=== PATIENT | female | born 1995 | race American Indian/Alaskan Native ===

== ENCOUNTER 2017-07-12 16:46 | Emergency (ER) | payer SELFPAY ==
[2017-07-12 17:02] VITALS: BP 130/77
[2017-07-12 20:55] LABS: Bacteria,Urine 1+ /HPF (Negative); Bilirubin,Urine NEG (Negative); Blood,Urine NEG (Negative); Ketones,Urine NEG (Negative); Leukocyte Esterase,Urine LG (Negative); Mucus,Urine FEW /HPF; Nitrite,Urine NEG (Negative); Protein,Urine <15 mg/dL mg/dL (Negative); Urobilinogen,Urine < 2.0 mg/dL (<2.0)
--- NOTE | 2017-07-13 04:52 | Emergency Department Report ---
Entered by SABA STINSON, acting as scribe for SEEMA BOX NP. ED Female HPI - General Chief complaint: Urogenital-Female Stated complaint: TEST ,POSSIBLE YEAST INFECTION Time Seen by Provider: 07/12/17 19:13 Source: patient Mode of arrival: Ambulatory Limitations: No Limitations - History of Present Illness Initial comments: This is a 27 year old female nontoxic, well nourished in appearance, no acute signs of distress, presents with c/o vaginal discharge and itching for 1 week. Patient states possible yeast infection and she feels like she is but has not yet confirmed . Patient reports vaginal discharge with odor, but denies headache, fever, chills, dizziness, hematuria, dysuria, vaginal bleeding, urgency, chest pain, shortness of breathe, or frequency. Patient states she needs confirmed to complete her Medicaid eligibility. Patient's LMP was in March. NKDA. Patient stated she is not concerned by STD but still wants to be tested. MD Complaint: vaginal discharge (with odor), other (possible yeast infection) -: week(s) (1) Severity: mild Severity scale (0 -10): 3 Quality: burning Consistency: constant Improves with: none Worsens with: none Associated Symptoms: denies other symptoms, vaginal discharge. denies: vaginal bleeding, abdominal pain, nausea/vomiting, fever/chills, headaches, loss of appetite, dysuria, hematuria, rash, seizure, shortness of breath, syncope, weakness - Related Data Sexually active: Yes Previous Rx's Medication Instructions Recorded Last Taken Type Vit/Iron Fumarate/FA 1 each PO QDAY #90 tablet 02/08/14 09/04/14 11:45 Rx [ Vitamin Tablet] 1 Ferrous Sulfate [Feosol 325 MG tab] 325 mg PO BID #60 tablet 09/05/14 Unknown Rx Fluconazole [Diflucan 200] 200 mg PO QDAY #1 tablet 09/05/14 Unknown Rx Ibuprofen [Motrin 800 MG tab] 800 mg PO Q6H PRN #30 tablet 09/05/14 Unknown Rx Clindamycin [Clindamycin CAP] 300 mg PO BID #14 cap 07/12/17 Unknown Rx Nitrofurantoin Donley/M-Cryst 100 mg PO Q12HR #14 capsule 07/12/17 Unknown Rx [Macrobid CAP] Allergies Allergy/AdvReac Type Severity Reaction Status Date / Time No Known Allergies Allergy Verified 07/14/14 17:08 ED Review of Systems Comment: All other systems reviewed and negative Constitutional: denies: chills, fever, weakness Eyes: denies: eye pain, eye discharge, vision change ENT: denies: ear pain, throat pain Respiratory: denies: cough, shortness of breath, wheezing Cardiovascular: denies: chest pain, palpitations Endocrine: no symptoms reported Gastrointestinal: denies: abdominal pain, nausea, vomiting, diarrhea Genitourinary: discharge (with odor). denies: urgency, dysuria, frequency, hematuria Musculoskeletal: denies: back pain, joint swelling, arthralgia Skin: denies: rash, lesions Neurological: denies: headache, weakness, paresthesias Psychiatric: denies: anxiety, depression Hematological/Lymphatic: denies: easy bleeding, easy bruising ED Past Medical Hx - Past Medical History Previous Medical History?: Yes Hx Hypertension: Yes (gestational PIH) Hx Heart Attack/AMI: No Hx Congestive Heart Failure: No Hx Diabetes: No Hx Deep Vein Thrombosis: No Hx Liver Disease: No Hx Renal Disease: No Hx Sickle Cell Disease: No Hx Seizures: No Hx Asthma: No Hx COPD: No Hx HIV: No - Surgical History Past Surgical History?: No - Social History Smoking Status: Never Smoker Substance Use Type: None - Medications Home Medications: Home Medications Medication Instructions Recorded Confirmed Last Taken Type Vit/Iron Fumarate/FA 1 each PO QDAY #90 tablet 02/08/14 09/04/14 11:45 Rx [ Vitamin Tablet] 1 Ferrous Sulfate [Feosol 325 MG tab] 325 mg PO BID #60 tablet 09/05/14 Unknown Rx Fluconazole [Diflucan 200] 200 mg PO QDAY #1 tablet 09/05/14 Unknown Rx Ibuprofen [Motrin 800 MG tab] 800 mg PO Q6H PRN #30 tablet 09/05/14 Unknown Rx Clindamycin [Clindamycin CAP] 300 mg PO BID #14 cap 07/12/17 Unknown Rx Nitrofurantoin Donley/M-Cryst 100 mg PO Q12HR #14 capsule 07/12/17 Unknown Rx [Macrobid CAP] ED Physical Exam - General Limitations: No Limitations General appearance: alert, in no apparent distress - Head Head exam: Present: atraumatic, normocephalic, normal inspection - Eye Eye exam: Present: normal appearance, PERRL, EOMI. Absent: scleral icterus, conjunctival injection, nystagmus, periorbital swelling, periorbital tenderness - ENT ENT exam: Present: normal exam, normal orophraynx, mucous membranes moist, TM's normal bilaterally, normal external ear exam - Neck Neck exam: Present: normal inspection, full ROM. Absent: tenderness, meningismus, lymphadenopathy, thyromegaly - Respiratory Respiratory exam: Present: normal lung sounds bilaterally. Absent: respiratory distress, wheezes, rales, rhonchi, stridor, chest wall tenderness, accessory muscle use, decreased breath sounds, prolonged expiratory - Cardiovascular Cardiovascular Exam: Present: regular rate, normal rhythm, normal heart sounds. Absent: bradycardia, tachycardia, irregular rhythm, systolic murmur, diastolic murmur, rubs, gallop - GI/Abdominal GI/Abdominal exam: Present: soft, normal bowel sounds. Absent: distended, tenderness, guarding, rebound, rigid, diminished bowel sounds - Rectal Rectal exam: Present: deferred - External exam: Present: normal external exam (saloon keeper Saba Stinson present during exam), other. Absent: erythema, swelling, lesions, lacerations, ecchymosis, bleeding Speculum exam: Present: normal speculum exam, vaginal discharge (white yellow with foul odor), other (saloon keeper Saba Stinson present during exam). Absent: erythema, cervical discharge, vaginal bleeding, foreign body, tissue, laceration Bi-manual exam: Present: normal bi-manual exam, other (saloon keeper Saba Stinson present during exam). Absent: cervical motion tendernes, adnexal tenderness, adnexal mass, uterine enlargement, uterine tenderness - Extremities Exam Extremities exam: Present: normal inspection, full ROM, normal capillary refill. Absent: tenderness, pedal edema, joint swelling, calf tenderness - Back Exam Back exam: Present: normal inspection, full ROM. Absent: tenderness, CVA tenderness (R), CVA tenderness (L), muscle spasm, paraspinal tenderness, vertebral tenderness - Neurological Exam Neurological exam: Present: alert, oriented X3, CN II-XII intact, normal gait, reflexes normal - Psychiatric Psychiatric exam: Present: normal affect, normal mood - Skin Skin exam: Present: warm, dry, intact, normal color. Absent: rash ED Course Vital Signs 07/12/17 16:55 Temperature 98.2 F Pulse Rate 82 Blood Pressure 130/77 O2 Sat by Pulse 98 Oximetry - Reevaluation(s) Reevaluation #1: 07/12/17 20:28 Patient is speaking in full sentences with no signs of distress noted. ED Medical Decision Making - Medical Decision Making This is a 21-year-old female presents with UTI and BV. UA, test wet prep and chlamydia has been obtained and sent to lab. UA elevated for leukocytes, RBCs. Wet prep indicates BV with clue cells were 20%. Patient notified of test positive as well as UA and wet prep and was instructed to follow-up as well will be TRAFFIC INCIDENT MANAGEMENT MANAGER in 24 hours. Patient be treated for BV and UTI. At time time of discharge, the patient does not seem toxic or ill in appearance. No acute signs of distress noted. Patient agrees to discharge treatment plan of care. No further questions noted by the patient. ED Disposition Clinical Impression: Bacterial vaginosis UTI (urinary tract infection) Qualifiers: Urinary tract infection type: site unspecified Hematuria presence: without hematuria Qualified Code(s): N39.0 - Urinary tract infection, site not specified Qualifiers: Weeks of gestation: unspecified Qualified Code(s): Z34.90 - Encounter for supervision of normal , unspecified, unspecified trimester Disposition: DC-01 TO HOME OR SELFCARE Is pt being admited?: No Does the pt Need Aspirin: No Condition: Stable Instructions: Clindamycin (By mouth), Nitrofurantoin Macrocrystals (By mouth), Bacterial Vaginosis (ED), Urinary Tract Infection in Women (ED), (ED) Additional Instructions: Follow-up with a MEDICAL INSURANCE CLAIMS SPECIALIST in 24 hours or if symptoms worsen or continue return to emergency room as was possible Prescriptions: Clindamycin [Clindamycin CAP] 300 mg PO BID #14 cap Nitrofurantoin Donley/M-Cryst [Macrobid CAP] 100 mg PO Q12HR #14 capsule Referrals: PRIMARY CAREMD [Primary Care Provider] - 3-5 Days [facility] [Outside] - 3-5 Days [facility] [Outside] - 3-5 Days KARIN SALINAS MD [Staff Physician] - 24 Hours Forms: STI Treatment and Prevention, Work/School Release Form(ED) This documentation as recorded by the YUN mena PEARL,accurately reflects the service I personally performed and the decisions made by ,SEEMA BOX, HISTORICAL ARCHEOLOGIST.
== END 2017-07-12 21:35 | disposition home or self-care (01) ==
LOC: ED 16:46
DX: O23.40 Unspecified infection of urinary tract in pregnancy, unspecified trimester (principal); N76.0 Acute vaginitis; Z3A.00 Weeks of gestation of pregnancy not specified
CPT/HCPCS: 81001; 81025; 87210; 87591

== ENCOUNTER 2018-01-13 07:47 | Outpatient (CLI) | payer MEDICAID ==
[2018-01-13 13:21] VITALS: BP 116/56
[2018-01-13] MEDS ORDERED: VISTARIL PO ONE (13:30)
== END 2018-01-13 14:00 | disposition home or self-care (01) ==
LOC: TRG 07:47
PROVIDERS: ATTEND Obstetrics & Gynecology
DX: O48.0 Post-term pregnancy (principal); Z3A.40 40 weeks gestation of pregnancy
CPT/HCPCS: 59025; Q0177

== ENCOUNTER 2018-01-14 08:16 | Inpatient (IN) | payer MEDICAID ==
[2018-01-14] MEDS ORDERED: BRETHINE SUB-Q PRN (10:02)
[2018-01-14] MEDS ORDERED: XYLOCAINE 2% INFILTRATI ONE (10:02)
[2018-01-14] MEDS ORDERED: ePHEDrine SULFATE IV PRN (10:02)
[2018-01-14] MEDS ORDERED: SUBLIMAZE IV PRN ×2 (10:02→11:57)
[2018-01-14] MEDS ORDERED: MINERAL OIL PO PRN (10:02)
[2018-01-14] MEDS ORDERED: ZOFRAN IV PRN (10:02)
--- NOTE | 2018-01-14 10:15 | History and Physical Report ---
History of Present Illness Date of examination: 01/14/18 (active labor with cervical chg) History of present illness: EDC Confirmation: 01/09/2018 Gestational Age: 19 1/7 weeks Past History : 3 Term Births: 2 Premature Births: 0 Living Children: 2 Para: 2 Mult. Births: 0 Prev : 0 Prev. attempt? 0 Aborta: 0 Elect. Ab: 0 Spont. Ab: 0 Ectopics: 0 # 1 Delivery date: 07/08/2013 Weeks Gestation: 39 labor: no Delivery type: Hours of labor: 18 Anesthesia type: epidural Delivery location: [facility] Infant Sex: Male weight: 6-0 Name: Natalia # 2 Delivery date: 09/04/2014 Weeks Gestation: 40 Delivery type: Vaginal Anesthesia type: epidural Delivery location: [facility] Sex: female weight: 7.50 Comments: none Past Medical History: Reviewed history from 01/26/2014 and no changes required: Negative Past Medical History Family History Summary: Reviewed history Last on 06/30/2015 and no changes required:08/16/2017 General Comments - FH: Family History Breast Cancer Family History of Colon Cancer Family History of CVA or Stroke No Family History of Cervical Cancer No Family History of Diabetes, Hypertension, or Coronary Artery Disease No Family History of Ovarvian Cancer Social History: Patient is single customer service Smoking History: Patient has never smoked. Risk Factors: Smoked Tobacco Use: Never smoker Drug use: no HIV high-risk behavior: low risk Caffeine use: 4+ drinks per day Alcohol use: no Seatbelt use: preg-credit counselor % Dietary Counseling: pn yes Past Medical History Abnormal PAP: negative JESSY Exposure: negative Infertility: negative Uterine Anomaly: negative Uterine Surgery (not C/S): negative Other Gynecologic Problems: negative Social Hx: Patient is single customer service Smoking History: Patient has never smoked. Infection History Hx of STD: chlamydia HIV Risk Eval: low risk Hepatitis B Risk Eval: low risk Personal hx. of genital herpes: no Partner hx. of genital herpes: no Rash, Viral, or Febrile illness since last LMP? no Varicella/Chicken Pox Status: Unknown TB Risk: no Genetic History Congenital Heart Defect: Mom: no Dad: no Reagan Disease: Mom: no Dad: no Thalassemia Mom: no Dad: no Neural Tube Defect Mom: no Dad: no Down's Syndrome Mom: no Dad: no Christiano-Sachs Mom: no Dad: no Sickle Cell Disease/Trait Mom: no Dad: no Hemophilia Mom: no Dad: no Muscular Dystrophy Mom: no Dad: no Cystic Fibrosis Mom: no Dad: no [place] Chorea Mom: no Dad: no Mental Retardation Mom: no Dad: no Fragile X Mom: no Dad: no Other Genetic/Chromosomal Disorder Mom: no Dad: no Child w/other defect Mom: no Dad: no Enviromental Exposures Xray Exposure: no Medication, drug, or alcohol use since LMP: no Chemical/Other Exposure: no Exposure to Cat Liter: no Hx of Parvovirus (Fifth Disease): no Occupational Exposure to Children: none Active Medications (reviewed today): LUTERA 0.1-20 MG-MCG ORAL TABLET (LEVONORGESTREL-ETHINYL ESTRAD) Take 1 pill po daily Current Allergies (reviewed today): No known allergies Laboratory Results Date/Time Collected: 08/16/2017 Urine HCG: positive Review of Systems General Denies fever, chills, sweats, anorexia, fatigue, weakness, malaise, weight loss and sleep disorder. Denies nausea, vomiting, headache, swelling of legs, abdominal pain, vaginal discharge, vaginal bleeding and contractions. Denies vaginal discharge, incontinence, dysuria, hematuria, urinary frequency, amenorrhea, menorrhagia, abnormal vaginal bleeding, pelvic pain, genital sores, decreased libido, painful periods, painful sex, urinary urgency, hot flashes, vaginal dryness, vaginal itching and vaginal odor. CV Denies chest pains, palpitations, syncope, dyspnea on exertion, orthopnea, PND and peripheral edema. Resp Denies cough, dyspnea at rest, excessive sputum, hemoptysis, wheezing and pleurisy. GI Denies nausea, vomiting, diarrhea, constipation, change in bowel habits, abdominal pain, melena, hematochezia, jaundice, gas/bloating, indigestion/ heartburn, dysphagia and odynophagia. Endo Denies cold intolerance, heat intolerance, polydipsia, polyphagia, polyuria and unusual weight change. Breast Denies left breast lump, right breast lump, nipple discharge, bloody discharge from nipple, breast pain, abnormal mammogram and breast enlargement. MS Denies back pain, joint pain, joint swelling, muscle cramps, muscle weakness, stiffness, arthritis, sciatica, restless legs, leg pain at night and leg pain with exertion. Derm Denies rash, itching, dryness and suspicious lesions. Neuro Denies paralysis, paresthesias, headache, seizures, tremors, vertigo, transient blindness, frequent falls, frequent headaches and difficulty walking. Psych Denies depression, anxiety, irritability and mood swings. Eyes Denies blurring, diplopia, irritation, discharge, vision loss, eye pain and photophobia. ENT Denies earache, ear discharge, tinnitus, decreased hearing, nasal congestion, nosebleeds, sore throat and hoarseness. Allergy Denies urticaria, allergic rash, hay fever and recurrent infections. Heme Denies abnormal bruising, bleeding and enlarged lymph nodes. PHYSICAL EXAM HEENT: PERRLA, normal conjunctiva, external nose and nasal mucosa normal, oropharynx clear Neck/Thyroid: supple, thyroid normal Skin no significant abnormal lesions or rashes Chest: respiratory effort normal, clear to auscultation Breasts: normal without skin changes or masses CV: regular, normal S1-S2, no murmur, no rub, no gallop Abdomen: normal bowel sounds, soft, nontender, no HSM Musculoskeletal: grossly normal ROM in joints, no joint tenderness or muscle weakness Neuro: grossly normal DTRs, sensation, strength, cranial nerves Extremities: no clubbing, cyanosis, or edema Flowsheet View for Follow-up Visit Estimated weeks of gestation: 19 11/04 Weight: 192 Blood pressure: 114 / 66 Infant's Physician: UNKNOWN Past History - Obstetrical History Expected Date of Delivery: 01/09/18 Actual Gestation: 40 Week(s) 5 Day(s) : 3 Para: 2 Hx # Term Pregnancies: 2 Number of Living Children: 2 Medications and Allergies Allergies Allergy/AdvReac Type Severity Reaction Status Date / Time No Known Allergies Allergy Verified 01/13/18 13:55 Home Medications Medication Instructions Recorded Confirmed Last Taken Type Vit/Iron Fum/Folic AC 1 each PO QDAY #90 tablet 02/08/14 01/13/1801/12 09:00 Rx [ Vitamin Tablet] 1 valACYclovir [Valtrex] 500 mg PO DAILY 01/13/18 01/13/18 01/13/18 07:00 History 1 Active Meds: Active Medications Ephedrine Sulfate (Ephedrine Sulfate) 10 mg IV Q2M PRN PRN Reason: Hypotension Fentanyl (Sublimaze) 100 mcg IV Q2H PRN PRN Reason: Labor Pain Parenteral Electrolytes (Normosol-R Ph 7.4) 1,000 mls @ 125 mls/hr IV DIRECT MARITZA Oxytocin/Sodium Chloride (Pitocin/Ns 20 Unit/1000ml Drip) 20 units in 1,000 mls @ 125 mls/hr IV DIRECT MARITZA Oxytocin/Sodium Chloride (Pitocin/Ns 30 Unit/500ml) 30 units in 500 mls @ 4 mls /hr IV Q30MIN MARITZA; Protocol Lidocaine (Xylocaine 2%) 20 ml INFILTRATI ONCE ONE Stop: 01/14/18 10:03 Mineral Oil (Mineral Oil) 30 ml PO QHS PRN PRN Reason: Constipation Ondansetron HCl (Zofran) 4 mg IV Q8H PRN PRN Reason: Nausea And Vomiting Terbutaline Sulfate (Brethine) 0.25 mg SUB-Q ONCE PRN PRN Reason: Hyperstimulation/Hypertonicity - Vital Signs Vital signs: Vital Signs Pulse BP 96 H 136/79 01/14/18 08:28 01/14/18 08:28 Temp Pulse Resp BP Pulse Ox 98.2 F 96 H 20 136/79 01/14/18 08:49 01/14/18 08:28 01/14/18 08:49 01/14/18 08:28 - Physical Exam Breasts: Positive: deferred Cardiovascular: Regular rate, Normal S1, Normal S2 Lungs: Positive: Normal air movement Abdomen: Positive: normal appearance, soft, normal bowel sounds. Negative: distention, tenderness Genitourinary (Female): Positive: normal external genitalia, normal perenium Vulva: both: normal Vagina: Positive: normal moisture. Negative: discharge Cervix: Negative: lesion, discharge Uterus: Positive: normal size, normal contour Adnexa: both: normal Anus/Rectum: Positive: normal perianal skin, heme negative. Negative: rectal mass, hemorrhoids Extremities: Positive: normal Deep Tendon Reflex Grade: Normal +2 - Obstetrical FHR: category 1 Uterine Contraction Monitor Mode: External Cervical Dilatation: 4 (cervical chg in triage) Cervical Effacement Percentage: 70 station: -1 Uterine Contraction Pattern: Regular Uterine Tone Measurement Phase: Resting Uterine Contraction Intensity: Moderate Results All other labs normal. Strep Gp B HELENA Negative HBsAg Screen Negative Negative *1 RPR Non Reactive Non Reactive *2 Rubella Antibodies, IgG 2.63 index Immune >0.99 *3 Non-immune <0.90 Equivocal 0.90 - 0.99 Immune >0.99 ABO Grouping O *4 Rh Factor Positive *5 Please note: Prior records for this patient's ABO / Rh type are not available for additional verification. Antibody Screen Negative Negative *6 WBC 10.0 x10E3/uL 3.4-10.8 *7 RBC 3.78 x10E6/uL 3.77-5.28 *8 Hemoglobin [L] 10.7 g/dL 11.1-15.9 *9 Hematocrit [L] 32.6 % 34.0-46.6 *10 MCV 86 fL 79-97 *11 MCH 28.3 pg 26.6-33.0 *12 MCHC 32.8 g/dL 31.5-35.7 *13 RDW 15.1 % 12.3-15.4 *14 Platelets 191 x10E3/uL 150-379 *15 Neutrophils 66 % Not Estab. *16 Lymphs 24 % Not Estab. *17 Monocytes 9 % Not Estab. *18 Eos 1 % Not Estab. *19 Basos 0 % Not Estab. *20 ! Immature Cells <No Reported Value> *21 Neutrophils (Absolute) 6.5 x10E3/uL 1.4-7.0 *22 Lymphs (Absolute) 2.4 x10E3/uL 0.7-3.1 *23 Monocytes(Absolute) 0.9 x10E3/uL 0.1-0.9 *24 Eos (Absolute) 0.1 x10E3/uL 0.0-0.4 *25 Baso (Absolute) 0.0 x10E3/uL 0.0-0.2 *26 ! Immature Granulocytes 0 % Not Estab. *27 ! Immature Grans (Abs) 0.0 x10E3/uL 0.0-0.1 *28 ! NRBC <No Reported Value> *29 Hematology Comments: <No Reported Value> *30 Tests: (2) Cystic Fibrosis Profile ([id number]) ! CF, Screen Comment: *31 RESULTS: Negative for 32 mutations analyzed I Tests: (3) HSV 1 and 2 IgM Abs, Indirect ([id number]) ! HSV 1 IgM Antibodies <1:10 titer <1:10 *33 ! HSV 2 IgM Antibodies <1:10 titer <1:10 *34 HSV 1 and HSV 2 share many cross-reacting antigens. Elevated titers to both HSV 1 and HSV 2 may represent crossreactive HSV antibodies rather than exposure to both HSV 1 and HSV 2. Results for this test are for research purposes only by the assay's airline pilot. The performance characteristics of this product have not been established. Results should not be used as a diagnostic procedure without confirmation of the diagnosis by another medically established diagnostic product or procedure. Tests: (4) HB Solu + Rflx Frac ([id number]) Hemoglobin (Hgb) Solubility Negative Negative *35 Tests: (5) Panel 183035 ([id number]) HIV Screen 4th Generation wRfx Non Reactive Non Reactive *36 Tests: (6) HCV Ab w/Rflx to Verification ([id number]) ! HCV Ab <0.1 s/co ratio 0.0-0.9 *37 Tests: (7) Comment: ([id number]) ! Comment: SPRCS *38 Non reactive HCV antibody screen is consistent with no HCV infection, unless recent infection is suspected or other evidence exists to indicate HCV infection. Tests: (8) HSV Type 2-Specific Ab, IgG ([id number]) ! HSV 2 IgG, Type Spec [H] 5.02 index 0.00-0.90 *39 Negative <0.91 Equivocal 0.91 - 1.09 Positive >1.09 Note: Negative indicates no antibodies detected to HSV-2. Equivocal may suggest early infection. If clinically appropriate, retest at later date. Positive indicates antibodies detected to HSV-2. Tests: (9) Urine Culture, Routine ([id number]) Urine Culture, Routine Final report *40 Tests: (10) Result ([id number]) ! Result 1 No growth *41 Assessment and Plan - Patient Problems (1) Herpes genitalis Onset Date: ~01/14/18 Current Visit: Yes Status: Acute Plan to address problem: pt was started on prophylactic valtrex @ 35 weeks no obvious ulcers noted nor reported today (2) Active labor Onset Date: ~01/14/18 Current Visit: Yes Status: Acute Plan to address problem: 22yo @ 40+ weeks in early active labor GBS negative Orders in EMR Anticipate delivery
[2018-01-14 10:39] LABS: Hematocrit 36.1 % (30.3-42.9); Hemoglobin 11.9 gm/dl (10.1-14.3); Mean Corpuscular HGB Conc 33 % (30-34); Mean Corpuscular Hemoglobin 28 pg (28-32); Mean Corpuscular Volume 85 fl (79-97); Platelet Count 157 K/mm3 (140-440); Red Blood Count 4.28 M/mm3 (3.65-5.03); Red Cell Distribution Width 15.4 % (13.2-15.2)
[2018-01-14] MEDS ORDERED: PITOCin/NS 20 UNIT/1000ML DRIP 20 UNITS/1,000 ML BAG IV SCH (11:00)
[2018-01-14] MEDS ORDERED: PITOCin/NS 30 UNIT/500ML 30 UNITS/500 ML BAG IV SCH (11:00)
[2018-01-14] MEDS ORDERED: NORMOSOL-R PH 7.4 1,000 ML IV SCH (11:00)
--- NOTE | 2018-01-14 12:13 | Progress Note ---
Assessment and Plan Pt crying with ctx Requesting Epidural Pain meds given SVE 5-6,80,-1 Clear fluid noted Bolus going Re-eval after epidural. Subjective - Subjective Date of service: 01/14/18 (Pt crying out Req pain medication; SROM clear) Interval history: EDC Confirmation: 01/09/2018 Gestational Age: 19 1/7 weeks Past History : 3 Term Births: 2 Premature Births: 0 Living Children: 2 Para: 2 Mult. Births: 0 Prev : 0 Prev. attempt? 0 Aborta: 0 Elect. Ab: 0 Spont. Ab: 0 Ectopics: 0 # 1 Delivery date: 07/08/2013 Weeks Gestation: 39 labor: no Delivery type: Hours of labor: 18 Anesthesia type: epidural Delivery location: [facility] Infant Sex: Male weight: 6-0 Name: Natalia # 2 Delivery date: 09/04/2014 Weeks Gestation: 40 Delivery type: Vaginal Anesthesia type: epidural Delivery location: [facility] Sex: female weight: 7.50 Comments: none Past Medical History: Reviewed history from 01/26/2014 and no changes required: Negative Past Medical History Family History Summary: Reviewed history Last on 06/30/2015 and no changes required:08/16/2017 General Comments - FH: Family History Breast Cancer Family History of Colon Cancer Family History of CVA or Stroke No Family History of Cervical Cancer No Family History of Diabetes, Hypertension, or Coronary Artery Disease No Family History of Ovarvian Cancer Social History: Patient is single customer service Smoking History: Patient has never smoked. Risk Factors: Smoked Tobacco Use: Never smoker Drug use: no HIV high-risk behavior: low risk Caffeine use: 4+ drinks per day Alcohol use: no Seatbelt use: preg-personal financial counselor % Dietary Counseling: pn yes Past Medical History Abnormal PAP: negative JESSY Exposure: negative Infertility: negative Uterine Anomaly: negative Uterine Surgery (not C/S): negative Other Gynecologic Problems: negative Social Hx: Patient is single customer service Smoking History: Patient has never smoked. Infection History Hx of STD: chlamydia HIV Risk Eval: low risk Hepatitis B Risk Eval: low risk Personal hx. of genital herpes: no Partner hx. of genital herpes: no Rash, Viral, or Febrile illness since last LMP? no Varicella/Chicken Pox Status: Unknown TB Risk: no Genetic History Congenital Heart Defect: Mom: no Dad: no Reagan Disease: Mom: no Dad: no Thalassemia Mom: no Dad: no Neural Tube Defect Mom: no Dad: no Down's Syndrome Mom: no Dad: no Christiano-Sachs Mom: no Dad: no Sickle Cell Disease/Trait Mom: no Dad: no Hemophilia Mom: no Dad: no Muscular Dystrophy Mom: no Dad: no Cystic Fibrosis Mom: no Dad: no [place] Chorea Mom: no Dad: no Mental Retardation Mom: no Dad: no Fragile X Mom: no Dad: no Other Genetic/Chromosomal Disorder Mom: no Dad: no Child w/other defect Mom: no Dad: no Enviromental Exposures Xray Exposure: no Medication, drug, or alcohol use since LMP: no Chemical/Other Exposure: no Exposure to Cat Liter: no Hx of Parvovirus (Fifth Disease): no Occupational Exposure to Children: none Active Medications (reviewed today): LUTERA 0.1-20 MG-MCG ORAL TABLET (LEVONORGESTREL-ETHINYL ESTRAD) Take 1 pill po daily Current Allergies (reviewed today): No known allergies Laboratory Results Date/Time Collected: 08/16/2017 Urine HCG: positive Review of Systems General Denies fever, chills, sweats, anorexia, fatigue, weakness, malaise, weight loss and sleep disorder. Denies nausea, vomiting, headache, swelling of legs, abdominal pain, vaginal discharge, vaginal bleeding and contractions. Denies vaginal discharge, incontinence, dysuria, hematuria, urinary frequency, amenorrhea, menorrhagia, abnormal vaginal bleeding, pelvic pain, genital sores, decreased libido, painful periods, painful sex, urinary urgency, hot flashes, vaginal dryness, vaginal itching and vaginal odor. CV Denies chest pains, palpitations, syncope, dyspnea on exertion, orthopnea, PND and peripheral edema. Resp Denies cough, dyspnea at rest, excessive sputum, hemoptysis, wheezing and pleurisy. GI Denies nausea, vomiting, diarrhea, constipation, change in bowel habits, abdominal pain, melena, hematochezia, jaundice, gas/bloating, indigestion/ heartburn, dysphagia and odynophagia. Endo Denies cold intolerance, heat intolerance, polydipsia, polyphagia, polyuria and unusual weight change. Breast Denies left breast lump, right breast lump, nipple discharge, bloody discharge from nipple, breast pain, abnormal mammogram and breast enlargement. MS Denies back pain, joint pain, joint swelling, muscle cramps, muscle weakness, stiffness, arthritis, sciatica, restless legs, leg pain at night and leg pain with exertion. Derm Denies rash, itching, dryness and suspicious lesions. Neuro Denies paralysis, paresthesias, headache, seizures, tremors, vertigo, transient blindness, frequent falls, frequent headaches and difficulty walking. Psych Denies depression, anxiety, irritability and mood swings. Eyes Denies blurring, diplopia, irritation, discharge, vision loss, eye pain and photophobia. ENT Denies earache, ear discharge, tinnitus, decreased hearing, nasal congestion, nosebleeds, sore throat and hoarseness. Allergy Denies urticaria, allergic rash, hay fever and recurrent infections. Heme Denies abnormal bruising, bleeding and enlarged lymph nodes. PHYSICAL EXAM HEENT: PERRLA, normal conjunctiva, external nose and nasal mucosa normal, oropharynx clear Neck/Thyroid: supple, thyroid normal Skin no significant abnormal lesions or rashes Chest: respiratory effort normal, clear to auscultation Breasts: normal without skin changes or masses CV: regular, normal S1-S2, no murmur, no rub, no gallop Abdomen: normal bowel sounds, soft, nontender, no HSM Musculoskeletal: grossly normal ROM in joints, no joint tenderness or muscle weakness Neuro: grossly normal DTRs, sensation, strength, cranial nerves Extremities: no clubbing, cyanosis, or edema Flowsheet View for Follow-up Visit Estimated weeks of gestation: 19 11/04 Weight: 192 Blood pressure: 114 / 66 Infant's Physician: UNKNOWN Patient reports: movement normal Objective - Vital Signs Vital Signs: Vital Signs - 12hr 01/14/18 01/14/18 01/14/18 08:28 08:49 11:33 Temperature 98.2 F Pulse Rate 96 H 83 Respiratory 20 Rate Blood Pressure 136/79 O2 Sat by Pulse 100 Oximetry 01/14/18 01/14/18 01/14/18 11:38 11:43 11:48 Temperature Pulse Rate 82 88 88 Respiratory Rate Blood Pressure O2 Sat by Pulse 100 99 98 Oximetry 01/14/18 11:53 Temperature Pulse Rate 89 Respiratory Rate Blood Pressure O2 Sat by Pulse 100 Oximetry - Exam Breasts: deferred Cardiovascular: Regular rate Lungs: Normal air movement Abdomen: Present: normal appearance, soft. Absent: distention, tenderness Uterus: Present: normal FHR: auscultation normal, category 1 Uterine Contraction Monitor Mode: External Cervical Dilatation: 5.5 Cervical Effacement Percentage: 80 station: -1 Uterine Contraction Pattern: Regular Uterine Contraction Intensity: Moderate Extremities: normal Deep Tendon Reflex Grade: Normal +2 - Labs Labs: Abnormal Labs 01/14/18 10:20 RDW 15.4 H Laboratory Results - last 24 hr 01/14/18 01/14/18 10:20 10:20 WBC 9.7 RBC 4.28 Hgb 11.9 Hct 36.1 MCV 85 MCH 28 MCHC 33 RDW 15.4 H Plt Count 157 Blood Type O POSITIVE Antibody Screen Negative
[2018-01-14] MEDS ORDERED: METHERGINE IM ONE ×2 (13:12→14:25)
[2018-01-14] MEDS ORDERED: CYTOTEC ONE (13:13)
[2018-01-14] MEDS ORDERED: TYLENOL PO PRN (13:27)
[2018-01-14] MEDS ORDERED: DULCOLAX PR PRN (13:27)
[2018-01-14] MEDS ORDERED: BENADRYL PO PRN (13:27)
[2018-01-14] MEDS ORDERED: PHENERGAN PO PRN (13:27)
[2018-01-14] MEDS ORDERED: LANSINOH TP PRN (13:27)
[2018-01-14] MEDS ORDERED: MILK OF MAGNESIA PO PRN (13:27)
[2018-01-14] MEDS ORDERED: TUCKS PAD TP PRN (13:27)
--- NOTE | 2018-01-14 13:36 | Procedure Note ---
OB Delivery Note - Delivery Date of Delivery: 01/14/18 Door Frame Builder: TEJINDER GARCIA Estimated blood loss: other (600cc) - Vaginal Delivery presentation: vertex Delivery position: OA Intrapartum events: none Delivery induction: none Delivery monitor: external FHT, external uterine Route of delivery: Delivery placenta: spontaneous Delivery cord: 3 umbilical vessels Episiotomy: none Delivery laceration: none Anesthesia: none Delivery comments: live born male over intact perineum Baby to mom's abdomen skin to skin Cord blood obtained Placenta and membrane del complete and intact, 3 vessel cord. Pit IVFs Uterus boggy massage, sweep Methergine, Cytotec 800mcg MO Several large clots expressed 8/9, EBL 600, Wgt 7-8 Mom and baby remain LDR. [facility]. - A at 1 minute: 8 at 5 minutes: 9 Infant Gender: Male (wgt 7-8)
[2018-01-14] MEDS ORDERED: MOTRIN PO SCH (14:00)
[2018-01-14] MEDS ORDERED: SODIUM CHLORIDE FLUSH SYRINGE 10 ML IV NR (14:00)
[2018-01-14] MEDS ORDERED: CYTOTEC PR ONE (14:00)
[2018-01-14] MEDS: MOTRIN PO SCH ×2 (15:15→22:43)
[2018-01-14] MEDS ORDERED: MORPHINE IV ONE (16:18)
[2018-01-14] MEDS: NORCO 5/325 PO PRN ×2 (16:41→22:43)
[2018-01-14] MEDS ORDERED: COLACE PO SCH (22:00)
[2018-01-14] MEDS: METHERGINE PO SCH (22:43)
[2018-01-15 00:48] LABS: Hematocrit 32.4 % (30.3-42.9); Hemoglobin 10.4 gm/dl (10.1-14.3)
[2018-01-15] MEDS: METHERGINE PO SCH (05:37)
[2018-01-15] MEDS: MOTRIN PO SCH ×2 (05:37→14:19)
[2018-01-15] MEDS: NORCO 5/325 PO PRN (05:39)
[2018-01-15] MEDS ORDERED: M-M-R II VACCINE SUB-Q ONE (06:00)
[2018-01-15] MEDS ORDERED: BOOSTRIX IM ONE (06:00)
--- NOTE | 2018-01-15 08:10 | Progress Note ---
Assessment and Plan patient resting w/o complaints. denies SIMEON, visual changes or epigastric pain. H &H 10.4/32.4, VSSAF, some mildly elevated b/p;s 130-140's/70-80's. Will check [facility] labs. Patient desires d/c home this afternoon if stable. - Patient Problems (1) Single live Current Visit: Yes Status: Acute Subjective - Subjective Date of service: 01/15/18 Principal diagnosis: day #1 s/p Patient reports: appetite normal, voiding normally, pain well controlled, ambulating normally, no dizzy ambulation, no nauseated [place]: doing well, bottle feeding Objective - Vital Signs Latest vital signs: Vital Signs Temp Pulse Resp BP BP Pulse Ox 01/14/18 23:24 98.7 F 99 H 20 109/76 98 01/14/18 20:42 97.6 F 82 20 135/73 100 01/14/18 17:03 98.2 F 85 18 135/87 98 01/14/18 16:41 16 01/14/18 14:45 98.3 F 87 16 116/61 01/14/18 13:38 77 149/81 01/14/18 13:24 79 143/77 01/14/18 13:09 75 138/70 01/14/18 12:27 82 99 01/14/18 12:22 79 100 01/14/18 12:17 85 100 01/14/18 11:53 89 100 01/14/18 11:48 88 98 01/14/18 11:43 88 99 01/14/18 11:38 82 100 01/14/18 11:33 83 100 01/14/18 08:49 98.2 F 20 01/14/18 08:28 96 H 136/79 Intake and Output 01/14/18 01/15/18 01/15/18 23:59 07:59 15:59 Intake Total 480 Output Total 500 800 Balance -20 -800 Intake: Oral 240 Intake, Free Water 240 Output: Urine 500 800 Void 500 800 Other: Total, Intake Amount 240 Total, Output Amount 500 800 # Voids Void 1 - Exam Breasts: Present: normal Cardiovascular: Present: Regular rate Lungs: Present: Clear to auscultation, Normal air movement Abdomen: Present: normal appearance, soft Vulva: both: normal Uterus: Present: normal, firm, fundal height at umbilicus Extremities: Present: normal - Labs Labs: Abnormal lab results 01/14/18 Range/Units 10:20 RDW 15.4 H (13.2-15.2) %
[2018-01-15 08:27] LABS: Hematocrit 31.3 % (30.3-42.9); Hemoglobin 10.4 gm/dl (10.1-14.3); Mean Corpuscular HGB Conc 33 % (30-34); Mean Corpuscular Hemoglobin 28 pg (28-32); Mean Corpuscular Volume 83 fl (79-97); Platelet Count 134 K/mm3 (140-440); Red Blood Count 3.76 M/mm3 (3.65-5.03); Red Cell Distribution Width 15.1 % (13.2-15.2)
[2018-01-15 09:06] LABS: Alanine Aminotransferase 9 units/L (7-56); Uric Acid 3.9 mg/dL (3.5-7.6)
[2018-01-15] MEDS ORDERED: PRENATAL VITAMIN PO SCH (10:00)
--- NOTE | 2018-01-15 10:46 | Discharge Summary ---
Providers - Providers Date of Admission: 01/14/18 08:18 Date of discharge: 01/15/18 (desires d/c home) Attending physician: SHERYL BLANCHARD Primary care physician: SHERYL BLANCHARD Hospitalization Reason for admission: active labor Delivery: Episiotomy: none Laceration: none Other procedures: none complications: none Discharge diagnosis: IUP at term delivered [place] baby: male Hospital course: uncomplicated vaginal Condition at discharge: Good Disposition: DC-01 TO HOME OR SELFCARE - Discharge Diagnoses (1) Single live Status: Acute (2) Spontaneous vaginal delivery Status: Acute Plan - Discharge Medications Prescriptions: Ibuprofen [Motrin 800 MG tab] 800 mg PO Q8HR PRN #30 tablet PRN Reason: Pain Lidocain2.5%/Prilocai2.5% [Emla] 5 gm TP ONCE PRN #1 tube PRN Reason: Pain - Provider Discharge Summary Activity: routine, no sex for 6 weeks, no heavy lifting 4 weeks, no strenuous exercise Diet: routine Instructions: routine Additional instructions: [] Smoking cessation referral if applicable(refer to patient education folder for contact #) [] Refer to [facility]'s [facility] Booklet Call your doctor immediately for: * Fever > 100.5 * Heavy vaginal bleeding ( >1 pad per hour) * Severe persistent headache * Shortness of breath * Reddened, hot, painful area to leg or breast * Drainage or odor from incision. * Keep incision clean and dry at all times and follow doctor's instructions regarding bathing/showering - Follow up plan Follow up: SHERYL BLANCHARD MD [Primary Care Provider] - 7 Days (Congratulations! Please call [phone] to schedule your son's circumcision in 1 week and your visit in 4 weeks. Bring EMLA cream to your son's visit and await further instructions. Call for any questions or concerns.)
[2018-01-15 13:37] VITALS: BP 112/73
== END 2018-01-15 15:15 | disposition home or self-care (01) | DRG 774 ==
LOC: TRG 08:16 → UNDOADMIN 08:17 → LD 08:17 → TRG 08:17 → LD 08:18 → OB 15:12
PROVIDERS: ADMIT Obstetrics & Gynecology; ATTEND Obstetrics & Gynecology
PROC: 10E0XZZ Delivery of Products of Conception, External Approach (ICD-10-PCS; principal; 2018-01-14)
PROC: 3E0234Z Introduction of Serum, Toxoid and Vaccine into Muscle, Percutaneous Approach (ICD-10-PCS; 2018-01-15)
DX: O98.32 Other infections with a predominantly sexual mode of transmission complicating childbirth (principal); A60.09 Herpesviral infection of other urogenital tract; Z3A.40 40 weeks gestation of pregnancy; Z37.0 Single live birth; Z23 Encounter for immunization
CPT/HCPCS: 36415; 82565; 83615; 84450; 84460; 84550; 85014; 85018; 85027; 86592; 86850; 86900; 86901; J2210; J2590; J3010

== ENCOUNTER 2018-02-28 21:48 | Emergency (ER) | payer MEDICAID ==
[2018-02-28 22:19] VITALS: BP 132/90
== END 2018-03-01 04:50 | disposition left against medical advice (07) ==
LOC: ED 21:48
DX: H57.10 Ocular pain, unspecified eye (principal); Z53.21 Procedure and treatment not carried out due to patient leaving prior to being seen by health care provider

== ENCOUNTER 2018-07-27 18:48 | Emergency (ER) | payer MEDICAID ==
[2018-07-27 19:14] VITALS: BP 133/79
[2018-07-27] MEDS ORDERED: MOTRIN PO ONE (21:43)
--- NOTE | 2018-07-27 21:48 | Emergency Department Report ---
ED ENT HPI - General Chief complaint: Dental/Oral Stated complaint: TOOTHACHE/GUM BLEEDING Time Seen by Provider: 07/27/18 21:40 Source: patient Mode of arrival: Ambulatory Limitations: No Limitations - History of Present Illness Initial comments: severe tooth pain and gum swelling MD complaint: tooth pain -: Gradual, days(s) (2) Location: tooth # (17) Severity: moderate Consistency: constant Improves with: none Worsens with: none Context- Dental: history of dental caries, poor dental care - Related Data Home Medications Medication Instructions Recorded Confirmed Last Taken valACYclovir [Valtrex] 500 mg PO DAILY 01/13/18 01/14/18 01/13/18 07:00 1 Previous Rx's Medication Instructions Recorded Last Taken Type Vit/Iron Fum/Folic AC 1 each PO QDAY #90 tablet 02/08/14 01/14/18 10: 04 Rx [ Vitamin Tablet] Ibuprofen [Motrin 800 MG tab] 800 mg PO Q8HR PRN #30 tablet 01/15/18 Unknown Rx Lidocain2.5%/Prilocai2.5% [Emla] 5 gm TP ONCE PRN #1 tube 01/15/18 Unknown Rx HYDROcodone/APAP 5-325 [[place] 1 each PO Q6HR PRN #10 tablet 07/27/18 Unknown Rx 5/325] Ibuprofen 800 mg PO Q6H PRN #15 tablet 07/27/18 Unknown Rx Penicillin V Potassium 500 mg PO QID 7 Days #28 tablet 07/27/18 Unknown Rx Allergies Allergy/AdvReac Type Severity Reaction Status Date / Time No Known Allergies Allergy Verified 01/13/18 13:55 ED Dental HPI - General Chief complaint: Dental/Oral Stated complaint: TOOTHACHE/GUM BLEEDING Time Seen by Provider: 07/27/18 21:40 Source: patient Mode of arrival: Ambulatory Limitations: No Limitations - Related Data Home Medications Medication Instructions Recorded Confirmed Last Taken valACYclovir [Valtrex] 500 mg PO DAILY 01/13/18 01/14/18 01/13/18 07:00 1 Previous Rx's Medication Instructions Recorded Last Taken Type Vit/Iron Fum/Folic AC 1 each PO QDAY #90 tablet 02/08/14 01/14/18 10: 04 Rx [ Vitamin Tablet] Ibuprofen [Motrin 800 MG tab] 800 mg PO Q8HR PRN #30 tablet 01/15/18 Unknown Rx Lidocain2.5%/Prilocai2.5% [Emla] 5 gm TP ONCE PRN #1 tube 01/15/18 Unknown Rx HYDROcodone/APAP 5-325 [[place] 1 each PO Q6HR PRN #10 tablet 07/27/18 Unknown Rx 5/325] Ibuprofen 800 mg PO Q6H PRN #15 tablet 07/27/18 Unknown Rx Penicillin V Potassium 500 mg PO QID 7 Days #28 tablet 07/27/18 Unknown Rx Allergies Allergy/AdvReac Type Severity Reaction Status Date / Time No Known Allergies Allergy Verified 01/13/18 13:55 ED Review of Systems ROS: Stated complaint: TOOTHACHE/GUM BLEEDING Other details as noted in HPI Constitutional: denies: fever, malaise ENT: dental pain. denies: throat pain, congestion Respiratory: denies: shortness of breath ED Past Medical Hx - Past Medical History Hx Hypertension: Yes (gestational PIH) Hx Heart Attack/AMI: No Hx Congestive Heart Failure: No Hx Diabetes: No Hx Deep Vein Thrombosis: No Hx Liver Disease: No Hx Renal Disease: No Hx Sickle Cell Disease: No Hx Seizures: No Hx Asthma: No Hx COPD: No Hx HIV: No - Surgical History Past Surgical History?: No - Social History Smoking Status: Never Smoker Substance Use Type: None - Medications Home Medications: Home Medications Medication Instructions Recorded Confirmed Last Taken Type Vit/Iron Fum/Folic AC 1 each PO QDAY #90 tablet 02/08/14 01/14/1801/14 10:04 Rx [ Vitamin Tablet] valACYclovir [Valtrex] 500 mg PO DAILY 01/13/18 01/14/18 01/13/18 07:00 History 1 Ibuprofen [Motrin 800 MG tab] 800 mg PO Q8HR PRN #30 tablet 01/15/18 Unknown Rx Lidocain2.5%/Prilocai2.5% [Emla] 5 gm TP ONCE PRN #1 tube 01/15/18 Unknown Rx HYDROcodone/APAP 5-325 [[place] 1 each PO Q6HR PRN #10 tablet 07/27/18 Unknown Rx 5/325] Ibuprofen 800 mg PO Q6H PRN #15 tablet 07/27/18 Unknown Rx Penicillin V Potassium 500 mg PO QID 7 Days #28 tablet 07/27/18 Unknown Rx ED Physical Exam - General Limitations: No Limitations General appearance: alert, in no apparent distress, other (normal voice) - Head Head exam: Present: atraumatic, normocephalic - Eye Eye exam: Present: normal appearance. Absent: scleral icterus, conjunctival injection - ENT ENT exam: Present: other (tooth #17 mild decay with surrounding gum irritation, no neck swelling or stridor no mass) - Respiratory Respiratory exam: Absent: respiratory distress - Neurological Exam Neurological exam: Present: alert, oriented X3 - Psychiatric Psychiatric exam: Present: normal affect, normal mood. Absent: anxious ED Course Vital Signs 07/27/18 19:13 Temperature 98.8 F Pulse Rate 86 Respiratory 18 Rate Blood Pressure 133/79 O2 Sat by Pulse 99 Oximetry ED Medical Decision Making - Medical Decision Making dental caries, pulpiitis rx: ibuprofen, norco, PCN Critical care attestation.: If time is entered above; I have spent that time in minutes in the direct care of this critically ill patient, excluding procedure time. ED Disposition Clinical Impression: Dental caries, Pulpitis, Toothache Disposition: TO HOME OR SELFCARE Is pt being admited?: No Does the pt Need Aspirin: No Condition: Stable Instructions: Dental Caries (ED), Dental Abscess (ED), Toothache (ED) Prescriptions: HYDROcodone/APAP 5-325 [[place] 5/325] 1 each PO Q6HR PRN #10 tablet PRN Reason: Pain Ibuprofen 800 mg PO Q6H PRN #15 tablet PRN Reason: Pain , Severe (7-10) Penicillin V Potassium 500 mg PO QID 7 Days #28 tablet Referrals: [facility] [Outside] - 3-5 Days [facility] [Outside] - 3-5 Days
== END 2018-07-27 21:59 | disposition home or self-care (01) ==
LOC: ED 18:48
DX: K02.9 Dental caries, unspecified (principal); I10 Essential (primary) hypertension
CPT/HCPCS: 99282

== ENCOUNTER 2021-11-22 19:43 | Emergency (ER) | payer SELFPAY | END 2021-11-23 05:43 | LOC: ED 19:43 | DX: R11.10 Vomiting, unspecified (principal); R42 Dizziness and giddiness; Z53.21 Procedure and treatment not carried out due to patient leaving prior to being seen by health care provider ==